=== PATIENT | female | born 1980 | race Caucasian/White ===

== ENCOUNTER 2022-02-15 20:30 | Emergency (ER) | payer OTHER, SELFPAY ==
--- NOTE | ~2022-02-15 | XR_ITS ---
EXAMINATION: XR foot LT 2V DATE: 02/15/2022 20:52 INDICATION: Left foot pain. TECHNIQUE: 2 views of left foot were obtained. COMPARISON: None. FINDINGS: Bone alignment is normal. No fracture. Joint spaces are normal. IMPRESSION: 1. Normal left foot. Reviewed, dictated and finalized at location A. IMPRESSION: 1. Normal left foot.
[2022-02-15 20:32] VITALS: BP 127/54; PULSE 72; RESP 20; TEMP 36.6; O2SAT 100
--- NOTE | 2022-02-15 21:22 | ED.EXTPRO ---
HPI - Extremity Problem General Chief complaint: Extremity Problem,Nontraumatic Stated complaint: left foot pain x 2 hours Time Seen by Provider: 02/15/22 20:42 History of Present Illness HPI Narrative: Patient is a 41-year-old female here for evaluation of atraumatic left foot pain for the past several hours. Patient states that she was at rest when the pain developed. It is a sharp/stabbing pain present on the dorsal aspect of her left foot. The pain does not radiate. The pain is worse with plantar flexion of the foot. She is able to move her foot and bear weight, but does note that it is painful. She denies any numbness, tingling, swelling, fevers, chills. She denies any history of blood clots. PCP is Dr. kathy garza. Related Data Allergies Allergy/AdvReac Type Severity Reaction Status Date / Time No Known Allergies Allergy Verified 02/15/22 20:47 Review of Systems Review of Systems: Gen.: Denies fevers or chills Eyes: Denies eye pain or visual change ENT: Denies congestion Respiratory: Denies shortness of breath or cough CV: Denies chest pain or palpitations GI: Denies abdominal pain nausea, emesis or diarrhea : denies burning, urgency, frequency or hematuria Musculoskeletal: Reports left foot pain. Neuro: Denies numbness, tingling, weakness or focal weakness Skin: Denies rash Except as documented, all other systems reviewed and negative Exam Narrative: APPEARANCE: Well appearing, no pain in distress, well-nourished. Head: Normocephalic and atraumatic. EYES: PERRLA/EOMI, conjunctivae clear NOSE: No nasal drainage EARS: External ear normal in appearance THROAT: Oropharynx is clear. Mucous membranes are moist. NECK: Supple. No adenopathy, no masses. RESPIRATORY: Airway patent, respirations nonlabored. Clear to auscultation bilaterally, no rales, rhonchi, wheezing. CARDIOVASCULAR: 2+ DP and PT pulses bilaterally. Regular rate and rhythm without murmurs, rubs, or gallops. ABDOMINAL: Normoactive bowel sounds. Soft, nontender, nondistended. No rebound tenderness or guarding. MUSCULOSKELETAL: No obvious deformity to left foot. She is tender to palpation over the dorsal aspect of the second and third tarsal bones. She has full range of motion in the foot, but does note pain with plantar flexion. Able to move toes. No edema. No bony tenderness along tibia or fibula, no tenderness along the knee. NEURO: Normal speech. No focal neurologic deficits. SKIN: Skin is warm and dry. No rashes. PSYCHIATRIC: Normal affect/mood. Course Consultations Consultation #1: spoke with Dr garza, patient's PCP , who will follow up on US study tomorrow Date: 02/15/22 Time: 22:01 Vital Signs Vital signs: Vital Signs Temperature 97.9 F 02/15/22 20:32 Pulse Rate 72 02/15/22 20:32 Respiratory Rate 20 02/15/22 20:32 Blood Pressure 127/54 L 02/15/22 20:32 Pulse Oximetry 100 02/15/22 20:32 Oxygen Delivery Room Air 02/15/22 20:32 Temperature 97.6 F 02/15/22 22:32 Pulse Rate 60 02/15/22 22:32 Respiratory Rate 18 02/15/22 22:32 Blood Pressure 122/72 02/15/22 22:32 Pulse Oximetry 99 02/15/22 22:32 Oxygen Delivery Room Air 02/15/22 20:32 MDM - Extremity (Nontraumatic) MDM Narrative Medical decision making narrative: 41-year-old female here for evaluation of atraumatic left foot pain over the past several hours. Here, she is nontoxic-appearing, her vital signs are normal, she is tender to palpation over the dorsum of her foot. Plain films in the ED negative for acute fracture. Given swelling and atraumatic nature, D-dimer was obtained to rule out blood clot which did come back slightly positive. No chest pain, tachycardia or shortness of breath to suggest PE. She was given a dose of Lovenox in the ED and will set up for a lower extremity ultrasound in the morning. Discussed case with patient's primary care provider who will follow-up on the ultrasound study tomorrow. Provided anticipato
[2022-02-15 21:31] LABS: Basophils Absolute Auto 0.1 K/mm3 (0.0-0.1); Basophils Percent Auto 0.7 % (0.2-1.2); Eosinophils Absolute Auto 0.2 K/mm3 (0-0.3); Eosinophils Percent Auto 2.5 % (0-4.4); Hematocrit 37.7 % (37.0-47.0); Hemoglobin 12.4 g/dL (12.0-15.0); Immature Granulocyte Absolute 0.03 K/mm3 (0.00-0.031); Immature Granulocyte Percent A 0.4 % (0-0.5); Lymphocytes Absolute Auto 2.98 K/mm3 (0.9-3.2); Lymphocytes Percent Auto 35.3 % (18.3-44.2); Mean Corpuscular HGB Conc 32.9 g/dl (32-36); Mean Corpuscular Hemoglobin 30.1 pg (26-34); Mean Corpuscular Volume 91.5 fl (80-100); Mean Platelet Volume 9.5 fl (7.4-10.4); Monocytes Absolute Auto 0.5 K/mm3 (0.1-0.6); Monocytes Percent Auto 6.4 % (2.6-8.5); Neutrophils Absolute Auto 4.6 K/mm3 (1.3-6.7); Neutrophils Percent Auto 54.7 % (45.5-73.1); Platelet Count Result 309 k/mm3 (150-375); Red Blood Count 4.12 M/mm3 (4.2-5.4); Red Cell Distribution Width 12.1 % (11.5-14.5); White Blood Count 8.4 K/mm3 (4.5-10.0)
[2022-02-15 21:39] LABS: INR 1.1; Prothrombin Time 13.3 Seconds (11.1-14.7)
[2022-02-15 21:40] LABS: Alanine Aminotransferase 18 U/L (6-35); Albumin Level 4.5 g/dL (3.5-5.1); Alkaline Phosphatase 60 U/L (38-126); Anion Gap 9 mmol/L (8-16); Aspartate Amino Transferase 24 U/L (14-36); Bilirubin,Total 0.3 mg/dL (0.2-1.3); Blood Urea Nitrogen 12 mg/dL (7-17); Calcium 9.1 mg/dL (8.4-10.2); Carbon Dioxide 28 mmol/L (22-30); Chloride 99 mmol/L (98-107); Estimated CRCL calculation 79 ml/min; Estimated Glomerular Filt Rate > 60; Glucose 93 mg/dL (65-110); Potassium 3.8 mmol/L (3.4-5.0); Sodium 136 mmol/L (137-145)
[2022-02-15 21:43] LABS: D Dimer 0.84 ug/mL (<0.48)
[2022-02-15] MEDS: ENOXAPARIN 80 MG/0.8 ML SYRINGE SUB-Q (22:06)
[2022-02-15 22:32] VITALS: BP 122/72; PULSE 60; RESP 18; TEMP 36.4; O2SAT 99
== END 2022-02-15 22:30 | disposition home or self-care (01) ==
PROVIDERS: Physician Assistant; Emergency Provider Emergency Medicine; PCP Internal Medicine
DX: M79.672 Pain in left foot (principal)
CPT/HCPCS: 36415; 73620; 80053; 85025; 85380; 85610; 96372; 99283; J1650

== ENCOUNTER 2022-02-16 07:47 | Outpatient (CLI) | payer OTHER, SELFPAY ==
--- NOTE | ~2022-02-16 | US_ITS ---
EXAMINATION: US venous doppler [facility] DATE: 02/16/2022 09:31 INDICATION: Left lower limb pain TECHNIQUE: Tyson scale images without and with compression and Doppler images of the left lower extrem ity veins were obtained. COMPARISON: None FINDINGS: The left common femoral vein, profunda femoral vein, femoral vein, popliteal vein, peroneal trunk, posterior tibial veins, and greater saphenous vein are patent. IMPRESSION: 1. Patent left lower extremity veins. No evidence of deep venous thrombosis. Reviewed, dictated and finalized at location A.
== END 2022-02-16 07:48 | disposition home or self-care (01) ==
PROVIDERS: PCP Internal Medicine; Visit Provider Internal Medicine
DX: M79.605 Pain in left leg (principal)
CPT/HCPCS: 93971

== ENCOUNTER 2023-05-01 15:08 | Emergency (ER) | payer OTHER, SELFPAY ==
[2023-05-01 15:10] VITALS: BP 132/92; PULSE 76; RESP 16; TEMP 36.5; O2SAT 96
--- NOTE | 2023-05-01 15:34 | ED.FEMALEGU ---
HPI - Female Genitourinary General Chief complaint: Vaginal Bleeding Stated complaint: vaginal bleeding Time Seen by Provider: 05/01/23 15:21 History of Present Illness HPI Narrative: 42-year-old female, [id number] with her at bedside for evaluation of menorrhagia x3 hours. Patient states she started spotting approximately 3 days ago and then developed her period yesterday. States today around 12pm, she began bleeding heavily from her vagina. States she has been having to change her pad approximately every 30 minutes since and has passed multiple large clots. She denies abdominal pain, chest pain, shortness of breath, lightheadedness, syncope. She states this is never happened to her before. She is not on anticoagulations or control. Her [employer] is Dr. Bowles at [facility]. States he tried to call her office and was on hold for 10 minutes before she sided to come to the ED for further evaluation. She denies history of thyroid disorders or bleeding dyscrasias. Denies vaginal discharge or concern for STDs. Related Data Allergies Allergy/AdvReac Type Severity Reaction Status Date / Time No Known Allergies Allergy Verified 02/15/22 20:47 Review of Systems Review of Systems: CONSTITUTIONAL: Denies fever, chills EYES: Denies visual changes, redness, or discharge. ENT: Denies rhinorrhea, congestion, sore throat, or otalgia. CARDIOVASCULAR: Denies chest pain, palpitations, or edema. RESPIRATORY: Denies cough or dyspnea. GASTROINTESTINAL: Denies abdominal pain, nausea, vomiting, or diarrhea. GENITOURINARY: See HPI SKIN: Denies rash or itching. MUSCULOSKELETAL: Denies back pain, joint pain, or myalgia. NEUROLOGIC: Denies headache, numbness, dizziness, or weakness. PSYCHIATRIC: Denies anxiety or depression. Exam Narrative: GENERAL: Well-appearing, in no acute distress. Patient resting comfortably in exam bed. She is pleasant and conversational. HEAD: Normocephalic EYES: PERRLA ENT: Nares clear. Mucous membranes moist. Oropharynx without tonsillar hypertrophy exudate or other lesions. NECK: Supple. CHEST: No respiratory distress. Clear to auscultation, no adventitious breath sounds. HEART: Regular rate and rhythm. No murmur heard. Normal peripheral pulses. ABDOMEN: Soft, nontender, normal active bowel sounds. No CVA tenderness. : No rashes or lesions to external genitalia, vaginal or cervix. Cervical os closed. Moderate amount of blood in vaginal vault with a small clot removed. No purulent discharge. No CMT. No adnexal masses or tenderness. No active hemorrhage. EXTREMITIES: Normal range of motion. No edema. SKIN: Warm, dry, no rash. NEURO: No focal deficits. Alert and oriented x3. PSYCH: Normal mood and affect. Course Vital Signs Vital signs: Vital Signs Temperature 97.7 F 05/01/23 15:10 Pulse Rate 76 05/01/23 15:10 Respiratory Rate 16 05/01/23 15:10 Blood Pressure 132/92 H 05/01/23 15:10 Pulse Oximetry 96 05/01/23 15:10 Temperature 97.7 F 05/01/23 15:10 Pulse Rate 70 05/01/23 17:49 Respiratory Rate 18 05/01/23 17:49 Blood Pressure 118/75 05/01/23 17:49 Pulse Oximetry 100 05/01/23 17:49 MDM - Female Genitourinary MDM Narrative Medical decision making narrative: 42-year-old female reports for evaluation for menorrhagia x3 hours, bleeding through a pad every 30 minutes since the onset of symptoms. See HPI for further history. Vitals significant for mildly elevated blood pressure, or is unremarkable. Patient is well-appearing on exam. Labs significant for no leukocytosis. Hemoglobin is 11.9. Past hemoglobin on 02/15/2022 was 12.4. Chemistries are unremarkable. Urinalysis shows hematuria likely secondary to vaginal bleeding, no UTI. negative. Pelvic exam is not significant for active hemorrhaging. Patient was given IV fluids. She was monitored in the ED for approximately 3 hours with improvement in bleeding- She only had to change her pa
[2023-05-01] MEDS: SODIUM CHLORIDE 0.9% IV 1,000 ML 999 ML IV CONT (15:54)
[2023-05-01 15:57] LABS: Basophils Absolute Auto 0.1 K/mm3 (0.0-0.1); Eosinophils Absolute Auto 0.1 K/mm3 (0-0.3); Eosinophils Percent Auto 2.7 % (0-4.4); Hematocrit 36.4 % (37.0-47.0); Hemoglobin 11.9 g/dL (12.0-15.0); Immature Granulocyte Absolute 0.01 K/mm3 (0.00-0.031); Immature Granulocyte Percent A 0.2 % (0-0.5); Lymphocytes Absolute Auto 1.53 K/mm3 (0.9-3.2); Lymphocytes Percent Auto 31.4 % (18.3-44.2); Mean Corpuscular HGB Conc 32.7 g/dl (32-36); Mean Corpuscular Volume 91.7 fl (80-100); Mean Platelet Volume 10.1 fl (7.4-10.4); Monocytes Absolute Auto 0.3 K/mm3 (0.1-0.6); Monocytes Percent Auto 6.6 % (2.6-8.5); Neutrophils Absolute Auto 2.8 K/mm3 (1.3-6.7); Neutrophils Percent Auto 58.1 % (45.5-73.1); Platelet Count Result 284 k/mm3 (150-375); Red Blood Count 3.97 M/mm3 (4.2-5.4); Red Cell Distribution Width 11.9 % (11.5-14.5); White Blood Count 4.9 K/mm3 (4.5-10.0)
[2023-05-01 16:13] LABS: Alanine Aminotransferase 19 U/L (6-35); Albumin Level 4.3 g/dL (3.5-5.1); Alkaline Phosphatase 56 U/L (38-126); Anion Gap 5 mmol/L (8-16); Aspartate Amino Transferase 23 U/L (14-36); Bilirubin,Total 0.5 mg/dL (0.2-1.3); Blood Urea Nitrogen 11 mg/dL (7-17); Carbon Dioxide 27 mmol/L (22-30); Chloride 104 mmol/L (98-107); Estimated CRCL calculation 108 ml/min; Estimated Glomerular Filt Rate > 60; Glucose 96 mg/dL (65-110); Potassium 3.7 mmol/L (3.4-5.0); Sodium 136 mmol/L (137-145)
[2023-05-01 16:19] LABS: Appearance Urine Clear (Clear); Bacteria Urine None Seen /hpf; Bilirubin Urine Negative (Negative); Blood Urine 3+ (Negative); Color Urine Yellow (Yellow); Glucose Urine UA Negative (Negative); Ketones Urine Negative (Negative); Leukocyte Esterase Ur Negative LEU/UL (Negative); Nitrate Urine Negative (Negative); Non Pathogenic Casts 0-2; Protein Urine Negative (Negative); RBC Urine 21-50 /hpf (0-2); Specific Grav Ur 1.003 (1.001-1.035); Squamous Epithelial Cell Urine None seen /hpf (Few); Urobilinogen Urine 0.2 mg/dL (<2.0); WBC Urine 0-5 /hpf; pH Urine 7.5 (5.0-9.0)
[2023-05-01 16:21] LABS: INR 0.9
[2023-05-01 16:26] LABS: Add Urine Microscopic? YES
[2023-05-01 17:49] VITALS: BP 118/75; PULSE 70; RESP 18; O2SAT 100
== END 2023-05-01 17:50 | disposition home or self-care (01) ==
PROVIDERS: Emergency Provider Physician Assistant; PCP Internal Medicine
DX: N92.0 Excessive and frequent menstruation with regular cycle (principal)
CPT/HCPCS: 36415; 80053; 81001; 81025; 85025; 85610; 86850; 86900; 86901; 96360; 99284; J7030

== ENCOUNTER 2024-05-25 14:45 | Outpatient (CLI) | payer OTHER, SELFPAY ==
--- NOTE | ~2024-05-25 | CT_ITS ---
EXAMINATION:CT diagnostic chest wo con DATE: 05/25/2024 15:05 INDICATION: Right lower lobe pulmonary nodule. TECHNIQUE: Computed tomography (CT) of the chest was performed without intravenous contrast. Automate d exposure control and iterative reconstruction technique were employed. The dose-length product (DLP ) was 34.53 mGy-cm. COMPARISON: None. FINDINGS: There is mild scarring at the lung apices. Calcified left lung nodules and calcified left h ilar and mediastinal lymph nodes are consistent with old granulomatous disease. No pleural effusion. The heart size is normal. No pericardial effusion. There is a 14 mm cyst in the liver. Calcifications in the spleen are consistent with old granulomatous disease. There is mild thoracic spondylosis. IMPRESSION: 1. No abnormal right lower lobe pulmonary nodule identified. Reviewed, dictated and finalized at location A. S FACILITATOR
== END 2024-05-25 14:46 | disposition home or self-care (01) ==
LOC: MICIMG 14:46
PROVIDERS: PCP Internal Medicine; Visit Provider Internal Medicine
DX: R91.1 Solitary pulmonary nodule (principal)
CPT/HCPCS: 71250